=== PATIENT | male | born 2000 | race African-American/Black ===

== ENCOUNTER 2023-10-09 13:49 | Emergency (ER) | payer MEDICAID ==
[~2023-10-09] VITALS: Ht 180.3 cm; Wt 75.0 kg
[2023-10-09] MEDS: MORPHINE SULFATE 4 MG/ML INJ (FOR IV/IM USE) IV ONE (14:45)
[2023-10-09 15:33] VITALS: O2SAT 100
[2023-10-09] MEDS: PROPOFOL 200MG/20ML VIAL IV ONE (15:47)
[2023-10-09] MEDS ORDERED: IBUP-2030 MT (16:49)
[2023-10-09 17:10] VITALS: BP 121/63; PULSE 85; RESP 19; TEMP 36.83628; O2SAT 100
== END 2023-10-09 17:27 | disposition home or self-care (01) ==
LOC: ER 13:49
DX: S52.511A Displaced fracture of right radial styloid process, initial encounter for closed fracture (principal); S52.591A Other fractures of lower end of right radius, initial encounter for closed fracture; V89.2XXA Person injured in unspecified motor-vehicle accident, traffic, initial encounter; Y93.89 Activity, other specified; Y92.89 Other specified places as the place of occurrence of the external cause; Y99.8 Other external cause status
CPT/HCPCS: 73090; 73100; 73110; 73120; 25605; 99152; 99285; J2704; J2270; Z7610; A4565

== ENCOUNTER 2024-05-14 14:27 | Emergency (ER) | payer MEDICAID ==
[~2024-05-14] VITALS: Ht 167.6 cm; Wt 70.0 kg
[~2024-05-14 14:27] MED LIST: IBUP-2030 MT
[2024-05-14 14:31] VITALS: BP 138/82; PULSE 99; RESP 16; TEMP 36.9; O2SAT 99
[2024-05-14] MEDS: ACETAMINOPHEN 325MG TABLET PO STA (15:16)
[2024-05-14] MEDS ORDERED: CYCL5TAB3 PO (16:46)
[2024-05-14] MEDS ORDERED: IBUP-2030 MT (16:46)
== END 2024-05-14 17:00 | disposition left against medical advice (07) ==
LOC: ER 14:27
DX: R51.9 Headache, unspecified (principal); S16.1XXA Strain of muscle, fascia and tendon at neck level, initial encounter; M25.561 Pain in right knee; M25.562 Pain in left knee; J45.909 Unspecified asthma, uncomplicated; I10 Essential (primary) hypertension; V43.62XA Car passenger injured in collision with other type car in traffic accident, initial encounter; Y93.89 Activity, other specified; Y92.89 Other specified places as the place of occurrence of the external cause; Y99.8 Other external cause status
CPT/HCPCS: 73562; 99284